=== PATIENT | male | born 1950 | race Caucasian/White ===

== ENCOUNTER 2016-11-04 08:17 | Day surgery (SDC) | payer OTHER ==
[2016-11-04 09:15] LABS: HEMATOCRIT 44.6 % (40.0-51.0)
[2016-11-04] MEDS ORDERED: LIDOCAINE 1% 30 ML SDV ONE (09:29)
[2016-11-04] MEDS ORDERED: IOPAMIDOL (ISOVUE-300) 100 ML BTL IV ONE (09:29)
[2016-11-04] MEDS ORDERED: LIDOCAINE 2% JELLY 20 ML (UROJECT) ONE (09:29)
[2016-11-04] MEDS ORDERED: fentaNYL 100 MCG/2 ML INJ ONE (09:40)
[2016-11-04] MEDS ORDERED: MIDAZOLAM 2 MG/2 ML VIAL ONE (09:41)
[2016-11-04 09:42] LABS: INR 1.08 (0.83-1.16); PROTIME(PATIENT) 13.9 SEC (12.0-15.0)
[2016-11-04] MEDS ORDERED: GLUCAGON,HUMAN RECOMBINANT 1 MG VIAL ONE (10:17)
[2016-11-04 10:29] LABS: APTT 27.7 SEC (23.0-38.0)
[2016-11-04] MEDS ORDERED: HYDROCODONE/APAP 5/325 TAB ONE (13:01)
[2016-11-04] MEDS ORDERED: ACETAMINOPHEN 325 MG TAB PO PRN (14:19)
[2016-11-04] MEDS ORDERED: ONDANSETRON 4 MG/2 ML VIAL IVP PRN (14:20)
[2016-11-04] MEDS ORDERED: HYDROCODONE/APAP 5/325 TAB PO PRN (14:20)
== END 2016-11-04 13:40 | disposition home or self-care (01) ==
LOC: FIMAGING 08:17
PROVIDERS: ATTEND Internal Medicine Hematology & Oncology
PROC: 0DH63UZ Insertion of Feeding Device into Stomach, Percutaneous Approach (ICD-10-PCS; principal; 2016-11-04 10:51)
DX: C02.9 Malignant neoplasm of tongue, unspecified (principal); I10 Essential (primary) hypertension; E78.00 Pure hypercholesterolemia, unspecified; Z87.891 Personal history of nicotine dependence
CPT/HCPCS: 49440; 99152; C1729; C1769; J1610; J1644; J2250; J3010; Q9967

== ENCOUNTER → 2016-11-20 | Day surgery (SDC) | payer OTHER | END | disposition home or self-care (01) | LOC: FIMAGING 11:10 | PROVIDERS: ATTEND Radiology Diagnostic Radiology | PROC: 02HV33Z Insertion of Infusion Device into Superior Vena Cava, Percutaneous Approach (ICD-10-PCS; principal; 2016-11-20) | DX: C01 Malignant neoplasm of base of tongue (principal) | CPT/HCPCS: 36569; 77001; C1751 ==

== ENCOUNTER 2017-01-12 09:29 | Emergency (ER) | payer OTHER ==
--- NOTE | 2017-01-12 10:00 | EDPHY ---
HPI/HX/ROS/PE/MDM Narrative: CHIEF COMPLAINT: Fever HPI: The patient is a 66 y/o male arriving with his at recommendation of his oncologist due to a fever and malaise this morning. The patient states he just completed 7 weeks of radiation and chemotherapy and never feels well. Last night he was coughing and felt like "I pulled something in my ribs" on the right side." He had a difficult time sleeping and felt poor this morning. His states their home thermometer read a temperature of 103F, though he was afebrile in triage. He denies abdominal pain, vomiting, diarrhea. REVIEW OF SYSTEMS: Aside from elements discussed in the HPI, a comprehensive 10-point review of systems was reviewed and is negative. PMH: Throat cancer treated with radiation and chemotherapy that concluded on 12/30, hypertension, tonsillectomy, g-tube Oncologist: Dr. Rizvi SOCIAL HISTORY: at bedside. PHYSICAL EXAM: General:Patient is alert, in no acute distress. ENT:Eyes are normal to inspection. Post-radiation changes in pharynx. Neck: Normal inspection. Full range of motion. Respiratory:No respiratory distress. Breath sounds normal bilaterally. Cardiovascular: Regular rate and rhythm. Strong peripheral pulses. Normal cap refill. Abdomen:The abdomen is nontender to palpation. There are no peritoneal signs. Back: Normal to inspection. No tenderness to palpation. Skin: Normal color. No rash. Warm and dry. Extremities: Normal appearance. Full range of motion. Neuro: Oriented x3. Normal motor function. Normal sensory function. ED Course: This is a 66 y/o male with active throat cancer who just completed 7 weeks of radiation and chemotherapy and presents with a reported 103F at home this morning. He is afebrile here. Other than post-radiation changes to his pharynx, his exam is unremarkable. Plan for chest x-ray, IV, labs including blood cultures. Chest x-ray shows left lower lobe pneumonia. Oncology paged. 1120: Consulted with Dr. Benson, oncology. WBC 4.31. He recommends IV Levaquin here, discharge with oral Levaquin, and outpatient follow up with his office. I discussed this with the patient and he is comfortable with plan for discharged. Return precautions given. MDM: This patient presents with fever, and he is found to have pneumonia on exam. He is not hypoxic and does not show any signs of severe sepsis or septic shock. He has recently completed a course of chemotherapy, but he is not neutropenic. After discussion with Oncology, I think the patient is safe for outpatient management. I discussed strict return precautions with him. He feels comfortable going home. - Data Points Imaging Results: Imaging Impressions Chest X-Ray 01/12/17 10:01 Impression: Left lower lobe pneumonia. Imaging: I viewed and interpreted images myself Laboratory Results: Laboratory Results 01/12/17 10:30 01/12/17 10:30 01/12/17 01/12/17 10:30 10:30 WBC 4.31 10^3/uL 10^3/uL (3.80-9.50) RBC 4.00 10^6/uL L 10^6/uL (4.40-6.38) Hgb 12.4 g/dL L g/dL (13.7-17.5) Hct 35.9 % L % (40.0-51.0) MCV 89.8 fL fL (81.5-99.8) MCH 31.0 pg pg (27.9-34.1) MCHC 34.5 g/dL g/dL (32.4-36.7) RDW 17.1 % H % (11.5-15.2) Plt Count 141 10^3/uL L 10^3/uL (150-400) MPV 8.8 fL fL (8.7-11.7) Neut % (Auto) 80.9 % H % (39.3-74.2) Lymph % (Auto) 4.4 % L % (15.0-45.0) [place] % (Auto) 12.1 % % (4.5-13.0) Eos % (Auto) 0.0 % L % (0.6-7.6) Baso % (Auto) 0.5 % % (0.3-1.7) Nucleat RBC Rel Count 0.0 % % (0.0-0.2) Absolute Neuts (auto) 3.49 10^3/uL 10^3/uL (1.70-6.50) Absolute Lymphs (auto) 0.19 10^3/uL L 10^3/uL (1.00-3.00) Absolute Monos (auto) 0.52 10^3/uL 10^3/uL (0.30-0.80) Absolute Eos (auto) 0.00 10^3/uL L 10^3/uL (0.03-0.40) Absolute Basos (auto) 0.02 10^3/uL 10^3/uL (0.02-0.10) Absolute Nucleated RBC 0.00 10^3/uL 10^3/uL (0-0.01) Immature Gran % 2.1 % H % (0.0-1.1) Immature Gran # 0.09 10^3/uL 10^3/uL (0.00-0.10) Sodium 141 mEq/L mEq/L (134-144) Potassium 4.3 mEq/L mEq/L (3.5-5.2) Chloride 105 mEq/L mEq/L (97-110) Carbon Dioxide 27 mEq/l mEq/l (22-31) Anion Gap 9 mEq/L mEq/L (8-16) BUN 28 mg/dL H mg/dL (7-23) Creatinine 0.8 mg/dL mg/dL (0.7-1.3) Estimated GFR > 60 Glucose 118 mg/dL H mg/dL (70-100) Calcium 8.8 mg/dL mg/dL (8.5-10.4) General Time Seen by Provider: 01/12/17 09:50 Initial Vital Signs: Initial Vital Signs Temperature (C) 36.7 C 01/12/17 09:39 Heart Rate 111 H 01/12/17 09:39 Respiratory Rate 16 01/12/17 09:39 Blood Pressure 168/89 H 01/12/17 09:39 O2 Sat (%) 92 01/12/17 09:39 O2 Delivery Mode Room Air Allergies/Adverse Reactions: Penicillins Allergy (Unverified 10/24/16 16:31) Home Medications: Medication Instructions Recorded Aspirin 81mg (*) 1 tab PO DAILY 11/01/16 Lisinopril-Hctz 10-12.5 mg Tab 1 tab PO DAILY 11/01/16 Multivitamin 1 tab PO DAILY 11/01/16 levOFLOXACIN [levAQUIN] 750 mg PO DAILY #9 tab 01/12/17 Departure - Departure Disposition: Home, Routine, Self-Care Clinical Impression: Pneumonia Qualifiers: Pneumonia type: due to unspecified organism Laterality: left Lung location: lower lobe of lung Qualified Code(s): J18.1 - Lobar pneumonia, unspecified organism Condition: Good Instructions: Pneumonia (ED) Additional Instructions: 1. Take Levaquin as prescribed. Be sure to complete the entire prescription even if you feel better. 2. Use Tylenol and ibuprofen as directed on the packaging as needed for pain or fever. 3. Follow up with Dr. Rizvi's office this week. 4. Return to the ED for any worsening of condition. Referrals: Gonzalez Lawrence MD [Primary Care Provider] - As per Instructions Adrien Rizvi MD [Medical Doctor] - As per Instructions Prescriptions: levOFLOXACIN [levAQUIN] 750 mg PO DAILY #9 tab Report Scribed for: Mark Hernandez Report Scribed by: Fozia Anderson Date of Report: 01/12/17 Time of Report: 10:07 Physician Review and Approval Statement: Portions of this note were transcribed by an ED scribe. I personally performed the history, physical exam, and medical decision making; and confirm the accuracy of the information in the transcribed note.
[2017-01-12 10:44] LABS: % IMMATURE GRANULYOCYTES 2.1 % (0.0-1.1); ABSOLUTE IMMATURE GRANULOCYTES 0.09 10^3/uL (0.00-0.10); ADD DIFF? NO; ADD MORPH? NO; ADD SCAN? NO; ATYPICAL LYMPHOCYTE FLAG 0 (0-99); FRAGMENT RBC FLAG 0 (0-99); HEMATOCRIT 35.9 % (40.0-51.0); HEMOGLOBIN 12.4 g/dL (13.7-17.5); LEFT SHIFT FLG 20 (0-99); LIPEMIA HEMOLYSIS FLAG 90 (0-99); MEAN CELL HEMOGLOBIN CONCENTR. 34.5 g/dL (32.4-36.7); MEAN CELL VOLUME 89.8 fL (81.5-99.8); MEAN PLATELET VOLUME 8.8 fL (8.7-11.7); PLATELET CLUMPS FLAG 0 (0-99); PLATELET COUNT 141 10^3/uL (150-400); RED CELL DISTRIBUTION WIDTH 17.1 % (11.5-15.2)
[2017-01-12 10:56] LABS: ANION GAP 9 mEq/L (8-16); CALCIUM 8.8 mg/dL (8.5-10.4); CARBON DIOXIDE 27 mEq/l (22-31); CHLORIDE 105 mEq/L (97-110); CREATININE 0.8 mg/dL (0.7-1.3); GLOMERULAR FILTRATION RATE > 60; GLUCOSE 118 mg/dL (70-100); POTASSIUM 4.3 mEq/L (3.5-5.2); SODIUM 141 mEq/L (134-144)
[2017-01-12 12:55] VITALS: BP 155/67; PULSE 82; RESP 18; TEMP 98.2; O2SAT 94
== END 2017-01-12 13:00 | disposition home or self-care (01) ==
DX: J18.9 Pneumonia, unspecified organism (principal); I10 Essential (primary) hypertension; Z85.818 Personal history of malignant neoplasm of other sites of lip, oral cavity, and pharynx
CPT/HCPCS: 96365; 96366; J1642; J1956

== ENCOUNTER 2017-01-15 07:15 | Inpatient (IN) | payer OTHER ==
[2017-01-15] MEDS ORDERED: IOPAMIDOL (ISOVUE 370) 100 ML BTL IV ONE (07:45)
[2017-01-15 07:52] LABS: % IMMATURE GRANULYOCYTES 1.9 % (0.0-1.1); ABSOLUTE IMMATURE GRANULOCYTES 0.07 10^3/uL (0.00-0.10); ADD DIFF? NO; ADD MORPH? NO; ADD SCAN? NO; ATYPICAL LYMPHOCYTE FLAG 0 (0-99); FRAGMENT RBC FLAG 0 (0-99); HEMATOCRIT 34.4 % (40.0-51.0); HEMOGLOBIN 11.8 g/dL (13.7-17.5); LEFT SHIFT FLG 20 (0-99); LIPEMIA HEMOLYSIS FLAG 90 (0-99); MEAN CELL HEMOGLOBIN 30.7 pg (27.9-34.1); MEAN CELL HEMOGLOBIN CONCENTR. 34.3 g/dL (32.4-36.7); MEAN CELL VOLUME 89.6 fL (81.5-99.8); MEAN PLATELET VOLUME 9.6 fL (8.7-11.7); PLATELET CLUMPS FLAG 40 (0-99); PLATELET COUNT 119 10^3/uL (150-400); RED BLOOD CELL COUNT 3.84 10^6/uL (4.40-6.38); RED CELL DISTRIBUTION WIDTH 17.5 % (11.5-15.2)
--- NOTE | 2017-01-15 07:53 | EDPHY ---
H & P Time Seen by Provider: 01/15/17 07:33 HPI/ROS: CHIEF COMPLAINT: Hemoptysis HISTORY OF PRESENT ILLNESS: The patient is a 66-year-old male with history of throat cancer, s/p chemotherapy and radiation, who presents with hemoptysis. This morning the patient coughed up about 2 tablespoons of blood. The patient was here Friday, 3 days ago, with fever and right sided chest pain. He was diagnosed with pneumonia and started on Levaquin. He was sent here by his oncologist, Dr. Riziv, to have CTA chest to r/o PE. He continues to have moderate rt sided cp that increases with inspiration. No SOB and no URI sx. REVIEW OF SYSTEMS: A comprehensive 10 point review of systems is otherwise negative aside from elements mentioned in the history of present illness. Past Medical/Surgical History: Throat cancer- s/p chemo/XRT, has feeding tube Hypertension Social History: . Oncologist: Dr. Rizvi Smoking Status: Former smoker Physical Exam: General Appearance: Alert, pleasant Eyes: Pupils equal and round, no conjunctival pallor or injection ENT, Mouth: Mucous membranes moist Neck: Normal inspection Respiratory: Lungs are clear to auscultation Cardiovascular: Regular rate and rhythm Gastrointestinal: Abdomen is soft and non-tender Neurological: A&O, nonfocal, normal gait Skin: Warm and dry, no rash Extremities: Nontender, no pedal edema Psychiatric: Mood and affect normal Constitutional: Initial Vital Signs Temperature (C) 36.7 C 01/15/17 07:23 Heart Rate 96 01/15/17 07:23 Respiratory Rate 20 01/15/17 07:23 Blood Pressure 152/77 H 01/15/17 07:23 O2 Sat (%) 93 01/15/17 07:23 O2 Delivery Mode Room Air O2 (L/minute) 2 Allergies/Adverse Reactions: Penicillins Allergy (Verified 01/15/17 07:22) Home Medications: Medication Instructions Recorded Aspirin 81mg (*) 1 tab PO DAILY 11/01/16 Lisinopril-Hctz 10-12.5 mg Tab 1 tab PO DAILY 11/01/16 Multivitamin 1 tab PO DAILY 11/01/16 levOFLOXACIN [levAQUIN] 750 mg PO DAILY #9 tab 01/12/17 Medical Decision Making - Diagnostics Imaging Results: Imaging Impressions Chest/Thorax CTA 01/15/17 07:33 Impression: 1. Positive pulmonary emboli, small volume, in the right lower lobe and left upper lobe. 2. Patchy opacities in the posterior basal segment of the right lower lobe and lingula, which may represent atelectasis, pneumonitis, or small pulmonary infarct. 3. Minimal right pleural effusion. 4. No suspicious pulmonary nodules or significant adenopathy. Findings and recommendations discussed with Emergency Department physician, Holli Maddox at 0815 hours on January 15, 2017. Final report concurs with initial preliminary interpretation. A test result has been communicated to a licensed care provider and documented in the [facility] Critical Result system on 01/15/2017 8:22, Message ID [id number]. Imaging: Discussed imaging studies w/ call or contact centre team leader Radiologist ED Course/Re-evaluation: The patient is a 66-year-old male, with history of throat cancer, s/p chemotherapy and radiation, presenting with hemoptysis. The patient was sent here by his oncologist to have CTA chest. The patient was seen here 3 days ago for right sided chest pain and fever. He was diagnosed with pneumonia and started on IV Levaquin. CTA today shows right lower and upper lobe pulmonary emboli, no definite pneumonia. Plan to start patient on anticoagulant. Patient' s platelet count today is 119. Vitals are stable. 8:30 a.m.: I consulted Dr. Rizvi who recommends IV Heparin. He will consult on the patient. 8:33 a.m.: I consulted the hospitalist, the patient will be admitted to Dr. Levine. Differential Diagnosis: Differential diagnosis includes though it is not limited to pneumonia, pneumothorax, aortic dissection, pericarditis, acute coronary syndrome. - Data Points Laboratory Results: Laboratory Results 01/15/17 07:35 01/15/17 07:35 01/15/17 01/15/17 01/15/17 07:35 07:35 07:35 WBC 3.64 10^3/uL L 10^3/uL (3.80-9.50) RBC 3.84 10^6/uL L 10^6/uL (4.40-6.38) Hgb 11.8 g/dL L g/dL (13.7-17.5) POC Hgb Hct 34.4 % L % (40.0-51.0) POC Hct MCV 89.6 fL fL (81.5-99.8) MCH 30.7 pg pg (27.9-34.1) MCHC 34.3 g/dL g/dL (32.4-36.7) RDW 17.5 % H % (11.5-15.2) Plt Count 119 10^3/uL L 10^3/uL (150-400) MPV 9.6 fL fL (8.7-11.7) Neut % (Auto) 75.0 % H % (39.3-74.2) Lymph % (Auto) 4.7 % L % (15.0-45.0) [place] % (Auto) 18.1 % H % (4.5-13.0) Eos % (Auto) 0.0 % L % (0.6-7.6) Baso % (Auto) 0.3 % % (0.3-1.7) Nucleat RBC Rel Count 0.0 % % (0.0-0.2) Absolute Neuts (auto) 2.73 10^3/uL 10^3/uL (1.70-6.50) Absolute Lymphs (auto) 0.17 10^3/uL L 10^3/uL (1.00-3.00) Absolute Monos (auto) 0.66 10^3/uL 10^3/uL (0.30-0.80) Absolute Eos (auto) 0.00 10^3/uL L 10^3/uL (0.03-0.40) Absolute Basos (auto) 0.01 10^3/uL L 10^3/uL (0.02-0.10) Absolute Nucleated RBC 0.00 10^3/uL 10^3/uL (0-0.01) Immature Gran % 1.9 % H % (0.0-1.1) Immature Gran # 0.07 10^3/uL 10^3/uL (0.00-0.10) PT 15.3 SEC H SEC (12.0-15.0) INR 1.21 H (0.83-1.16) APTT 28.6 SEC SEC (23.0-38.0) POC Sodium Sodium 140 mEq/L mEq/L (134-144) POC Potassium Potassium 4.2 mEq/L mEq/L (3.5-5.2) POC Chloride Chloride 103 mEq/L mEq/L (97-110) Carbon Dioxide 29 mEq/l mEq/l (22-31) Anion Gap 8 mEq/L mEq/L (8-16) POC BUN BUN 34 mg/dL H mg/dL (7-23) Creatinine 0.7 mg/dL mg/dL (0.7-1.3) POC Creatinine Estimated GFR > 60 Glucose 96 mg/dL mg/dL (70-100) POC Glucose Calcium 8.8 mg/dL mg/dL (8.5-10.4) 01/15/17 07:33 WBC RBC Hgb POC Hgb 11.6 gm/dL L gm/dL (14.5-17.3) Hct POC Hct 34 % L % (42.8-50.6) MCV MCH MCHC RDW Plt Count MPV Neut % (Auto) Lymph % (Auto) [place] % (Auto) Eos % (Auto) Baso % (Auto) Nucleat RBC Rel Count Absolute Neuts (auto) Absolute Lymphs (auto) Absolute Monos (auto) Absolute Eos (auto) Absolute Basos (auto) Absolute Nucleated RBC Immature Gran % Immature Gran # PT INR APTT POC Sodium 140 mEq/L mEq/L (134-144) Sodium POC Potassium 3.9 mEq/L mEq/L (3.3-5.0) Potassium POC Chloride 100 mEq/L mEq/L (96-108) Chloride Carbon Dioxide Anion Gap POC BUN 31 mg/dL H mg/dL (7-23) BUN Creatinine POC Creatinine 0.8 mg/dL mg/dL (0.8-1.5) Estimated GFR Glucose POC Glucose 99 mg/dL mg/dL (70-100) Calcium Medications Given: Discontinued Medications Heparin Sodium (Porcine) (Heparin Injection) 0 unit IVP EDNOW ONE PRN Reason: Protocol Stop: 01/15/17 08:30 Last Admin: 01/15/17 08:48 Dose: 5,800 units Heparin Sodium (Porcine) (Heparin 50 Units/Ml (Premix)) 500 mls @ 0 mls/hr IV EDNOW ONE; Per Protocol PRN Reason: Protocol Stop: 01/15/17 08:30 Last Admin: 01/15/17 08:49 Dose: 500 mls Point of Care Test Results: 01/15/17 07:33 POC Sodium 140 POC Potassium 3.9 POC Chloride 100 POC BUN 31 H POC Creatinine 0.8 POC Glucose 99 Departure - Departure Disposition: [facility] Inpatient Acute Clinical Impression: History of throat cancer, Cough with hemoptysis Pulmonary emboli Qualifiers: Pulmonary embolism type: other Chronicity: acute Acute cor pulmonale presence: without acute cor pulmonale Qualified Code(s): I26.99 - Other pulmonary embolism without acute cor pulmonale Condition: Fair Report Scribed for: Holli Maddox Report Scribed by: Joelle Davidson Date of Report: 01/15/17 Time of Report: 08:21 Physician Review and Approval Statement: 01/15/17 08:21 Portions of this note were transcribed by a lpn medical assistant. I personally performed the history, physical exam, and medical decision-making; and confirmed the accuracy of the information in the transcribed note.
[2017-01-15 07:59] LABS: INR 1.21 (0.83-1.16); PROTIME(PATIENT) 15.3 SEC (12.0-15.0)
[2017-01-15 08:00] LABS: APTT 28.6 SEC (23.0-38.0)
[2017-01-15 08:08] LABS: ANION GAP 8 mEq/L (8-16); CALCIUM 8.8 mg/dL (8.5-10.4); CARBON DIOXIDE 29 mEq/l (22-31); CHLORIDE 103 mEq/L (97-110); CREATININE 0.7 mg/dL (0.7-1.3); GLOMERULAR FILTRATION RATE > 60; GLUCOSE 96 mg/dL (70-100); POTASSIUM 4.2 mEq/L (3.5-5.2); SODIUM 140 mEq/L (134-144)
[2017-01-15] MEDS ORDERED: HEPARIN/DEXTROSE 500 ML IV ONE (08:29)
[2017-01-15] MEDS ORDERED: HEPARIN 10,000 UNIT/10 ML MDV IVP ONE ×2 (08:29→11:13)
--- NOTE | 2017-01-15 11:08 | GCON ---
[f rep st] CONSULTATION MEDICAL ONCOLOGY CONSULTATION. 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 He had bilateral adenopathy, and initial staging was T3 N2 C4A, althoug h this also was a stage II cancer in the staging for HPV-positive cancers. He was treated with comp rehensive radiation and weekly cisplatin. He also received amifostine, and he completed his last cy ariana of treatment in early December. He has since been followed. He has continued to lose weight. He is feeding himself via his PEG tube. He was seen in the emergency room 4 days ago with a fever and so me chest discomfort. A chest x-ray showed a left lower lobe infiltrate, and he was felt to have a p resumed pneumonia, and was placed on Levaquin. This morning, however, he developed some hemoptysis, and was instructed to go to the emergency room. A CT angiogram was performed, which showed small v olume pulmonary emboli in the right lower lobe and left upper lobe. There were patchy opacities in the right lower lobe and lingula, and a minimal right effusion. I should note that his chest pain i s primarily right-sided. He denies any problems with his legs. He was started on a heparin drip an d admitted to the cancer care unit. Currently, he appears moderately ill, but is awake and oriented . PAST MEDICAL HISTORY: Hypertension. SURGERY: Repair of a ruptured Achilles tendon, 2005. SOCIAL HISTORY: He has a [id number] former smoking history. REVIEW OF SYSTEMS: Positive for dry mouth. He denies much in the way of pain, and is otherwise neg ative for 10 systems except as discussed in the HPI. PHYSICAL EXAMINATION: VITAL SIGNS: Today, blood pressure 141/82, pulse 100, 95% sat on 2 L, temp 9 8.7. HEENT: He is not icteric. He has significant mucositis and a very dry-appearing mouth, with poor oral hygiene. NECK: I detect no obvious adenopathy. There are some mild post radiation skin changes around his neck. LUNGS: Generally clear. CARDIAC: Unremarkable. ABDOMEN: Benign with a PEG tube noted. EXTREMITIES: No obvious edema. NEUROLOGIC: Nonfocal. White count is 3.64, hemo globin 11.8, hematocrit 34.4, platelets are 119,000. Chemistry panel is unremarkable. IMPRESSION: Patient with hemoptysis and a pulmonary embolism related to recent treatment for human papillomavirus-positive head and neck carcinoma. It is unclear whether there is an infectious compo nent to this or not. PLAN: Treat him with intravenous heparin for a day or so, and make sure we do not flare up his hemo ptysis. He could probably be discharged on a novel anticoagulant. We will continue with mouth care and appropriate tube feedings. /[id number]/MODL
[2017-01-15] MEDS ORDERED: ONDANSETRON DISINTEGRATING 4 MG TAB PO PRN (11:35)
[2017-01-15] MEDS ORDERED: ACETAMINOPHEN 500 MG TAB PO PRN (11:44)
[2017-01-15] MEDS ORDERED: LORazepam 0.5 MG TAB PO PRN (11:44)
--- NOTE | 2017-01-15 12:29 | GHP ---
[f rep st] HISTORY AND PHYSICAL DATE OF ADMISSION: 01/15/2017 HISTORY OF PRESENT ILLNESS: The patient is a pleasant 66-year-old gentleman with a history of laryn geal cancer who has currently completed chemotherapy. He presents today with hemoptysis and his onc ologist recommended he present to the emergency department for a CTA which showed pulmonary emboli. He was seen in our ER over the weekend and diagnosed with pneumonia based on a left lower lobe infil trate (images interpreted by me). That did occur with a fever and sputum. He has no pain in his legs. He has no pleuritic pain. He has no lightheadedness or dizziness, coug h, shortness of breath. He has not had prior VTE. REVIEW OF SYSTEMS: Complete 10-point review of systems conducted, negative except as noted in the H PI. PAST MEDICAL HISTORY: 1. HPV-related laryngeal cancer, status post chemotherapy. 2. Hypertension. ALLERGIES: Penicillins with which he gets a rash. HOME MEDICATIONS: Lisinopril/hydrochlorothiazide, levofloxacin, Ativan, acetaminophen, oxycodone. SOCIAL HISTORY: He is originally from [facility]. 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 Quit smoking re motely. Rare alcohol. FAMILY HISTORY: Negative for VTE. PHYSICAL EXAM: VITAL SIGNS: Temp 36.7, blood pressure 152/77, pulse 96, breathing 20 times a minut e, 93% on room air. GENERAL: No acute distress. HEENT: Sclerae anicteric. Oropharynx shows a fa ir amount of tissue maceration secondary to chemotherapy and radiation. NECK: Supple without lymph adenopathy. LUNGS: Clear to auscultation bilaterally. HEART: S1, S2. Borderline tachycardic. A BDOMEN: Soft, without rebound or guarding. His PEG tube is midline without surrounding erythema or fluctuance. LOWER EXTREMITIES: Without edema. Calves nontender. SKIN: Without rash. NEUROLOGI C: Nonfocal. LABORATORY DATA: White count 3.6, hematocrit 34.4, and platelets are 119,000. These values are all sort of commensurate with his recent values. INR is 1.2. Sodium 140, potassium 4.2, chloride 103, bicarb 29, BUN 34, creatinine 0.7, glucose 96. CTA of the chest shows multifocal PE, patchy opacit ies in the posterior segment of the right lower lobe and lingula, may represent atelectasis, pneumon itis, small pulmonary infarct. The chest x-ray performed a couple of days ago showed a left lower l obe infiltrate. I have discussed the case with Dr. Mckayla Rizvi. ASSESSMENT/PLAN: 66-year-old gentleman with laryngeal cancer and recently diagnosed community-acqui red pneumonia. Presents with acute pulmonary embolism. 1. Pulmonary embolism. His risk factor is cancer. We will start him on a heparin drip given his h emoptysis. The plan is ultimately transition to a novel anticoagulant. He is moderate to low clot burden. 2. Pneumonia. Given his fever and his recent chemotherapy, I think it is reasonable for him to con tinue a 7-day course of antibiotics. 3. Hypertension. Given his pulmonary embolism, we will hold his antihypertensives today. He has b orderline hypoxia. 4. Prophylaxis. Pharmacologic prophylaxis is indicated but he is therapeutically anticoagulated. 5. Head and neck cancer. He is done with chemotherapy. He will be re-staged in about 3 months. 6. Code status. Full. 7. Disposition. Inpatient status. /[id number]/MODL
[2017-01-15] MEDS: oxyCODONE IR 5 MG TAB PO PRN (21:46)
[2017-01-15] MEDS: HEPARIN/DEXTROSE 500 ML IV SCH (21:46)
[2017-01-15] MEDS: HEPARIN 10,000 UNIT/10 ML MDV IVP PRN (22:51)
[2017-01-16 06:12] LABS: ADD DIFF? YES; ADD MORPH? NO; ADD SCAN? NO; ATYPICAL LYMPHOCYTE FLAG 0 (0-99); FRAGMENT RBC FLAG 0 (0-99); HEMATOCRIT 30.2 % (40.0-51.0); HEMOGLOBIN 10.4 g/dL (13.7-17.5); LEFT SHIFT FLG 80 (0-99); LIPEMIA HEMOLYSIS FLAG 90 (0-99); MEAN CELL HEMOGLOBIN 30.5 pg (27.9-34.1); MEAN CELL HEMOGLOBIN CONCENTR. 34.4 g/dL (32.4-36.7); MEAN CELL VOLUME 88.6 fL (81.5-99.8); MEAN PLATELET VOLUME 9.7 fL (8.7-11.7); PLATELET CLUMPS FLAG 0 (0-99); PLATELET COUNT 96 10^3/uL (150-400); RED BLOOD CELL COUNT 3.41 10^6/uL (4.40-6.38); RED CELL DISTRIBUTION WIDTH 17.2 % (11.5-15.2)
[2017-01-16 06:30] LABS: ANION GAP 6 mEq/L (8-16); CALCIUM 8.3 mg/dL (8.5-10.4); CARBON DIOXIDE 29 mEq/l (22-31); CHLORIDE 99 mEq/L (97-110); CREATININE 0.6 mg/dL (0.7-1.3); GLOMERULAR FILTRATION RATE > 60; GLUCOSE 102 mg/dL (70-100); POTASSIUM 3.6 mEq/L (3.5-5.2); SODIUM 134 mEq/L (134-144)
[2017-01-16 06:56] LABS: PLATELET ESTIMATE DECREASED (ADEQ)
[2017-01-16] MEDS ORDERED: Herbals/Supplements -Info Only PO SCH (09:00)
[2017-01-16] MEDS: ONDANSETRON 4 MG/2 ML VIAL IVP PRN (09:34)
--- NOTE | 2017-01-16 10:05 | HOSPPROG ---
Hospitalist Progress Note Assessment/Plan: 66 yo M w laryngeal CA here w small volume PE, fever, likely CAP PE: given hemoptysis, continue UFH ultimate plan is to transition to novel anticoagulant pneumonia: given fever, reasonable to continue to treat he suspects levoflox is causing nausea so will change to ceftriaxone pcn allergy noted, rash only laryngeal CA: has completed chemo nausea: continue prn meds, see what happens when levoflox dc'd hemoptysis: hct low but stable prph: anticoagulated dispo: inpt Subjective: febrile overnight. vomiting w some dark blood this AM Objective: Vital Signs Temp Pulse Resp BP Pulse Ox 36.6 C 68 18 149/83 H 94 01/16/17 08:30 01/16/17 08:30 01/16/17 08:30 01/16/17 08:30 01/16/17 08:30 Laboratory Results 01/16/17 05:23 01/16/17 05:23 01/15/17 01/16/17 01/17/17 05:59 05:59 05:59 Intake Total 1213 300 Balance 1213 300 PT 15.3 SEC (12.0-15.0) H 01/15/17 07:35 INR 1.21 (0.83-1.16) H 01/15/17 07:35 - Physical Exam Constitutional: no apparent distress, appears nourished Eyes: PERRL, anicteric sclera Ears, Nose, Mouth, Throat: other (mucusitis) Cardiovascular: regular rate and rhythym, no murmur, rub, or gallop, No tachycardia Respiratory: no respiratory distress, no rales or rhonchi Gastrointestinal: normoactive bowel sounds, soft, non-tender abdomen, other ( PEG site c/d/i), No guarding, No rebound Genitourinary: no bladder fullness Skin: warm, normal color Musculoskeletal: full muscle strength, no muscle tenderness Neurologic: AAOx3 ICD10 Worksheet Patient Problems: Problems Problem Status Onset Cough with hemoptysis Acute History of throat cancer Acute Pulmonary emboli Acute
[2017-01-16] MEDS: POLYETHYLENE GLYCOL 3350 17 GM PKT PO SCH (10:18)
[2017-01-16] MEDS ORDERED: PROMETHAZINE HCL 25 MG/ML INJ IVP PRN (11:16)
--- NOTE | 2017-01-16 12:18 | SOAPPROG ---
SOAP Progress Note Assessment/Plan: Assessment: 1. Head and neck cancer 2. PE 3. Mucositis 4. fever 5. hemoptysis Plan: Continue iv heparin for now, antibiotic switched to ceftriaxone, try salagen and nystatin for dry mouth and possible thrush 01/16/17 12:15 Subjective: Feels gen blah Objective: Vital Signs Temp Pulse Resp BP Pulse Ox 97.8 F 68 18 149/83 H 94 01/16/17 08:30 01/16/17 08:30 01/16/17 08:30 01/16/17 08:30 01/16/17 08:30 Laboratory Results 01/16/17 05:23 01/16/17 05:23 01/15/17 01/16/17 01/17/17 05:59 05:59 05:59 Intake Total 1213 300 Balance 1213 300 PT 15.3 SEC (12.0-15.0) H 01/15/17 07:35 INR 1.21 (0.83-1.16) H 01/15/17 07:35 Physical Exam - Physical Exam General Appearance: mild distress Respiratory: normal breath sounds Cardiac/Chest: regular rate, rhythm Abdomen: normal bowel sounds, non-tender ICD10 Worksheet Patient Problems: Problems Problem Status Onset Cough with hemoptysis Acute History of throat cancer Acute Pulmonary emboli Acute
[2017-01-16] MEDS: HEPARIN/DEXTROSE 500 ML IV SCH (13:01)
[2017-01-16] MEDS ORDERED: HYDROmorphONE/DILAUDID 1 MG/ML SYR IVP PRN (16:07)
[2017-01-16] MEDS: NYSTATIN SUSP 500000 UNIT/5 ML UDCUP PO SCH ×2 (16:44→22:29)
[2017-01-16] MEDS: PILOCARPINE HCL 5 MG TAB PO SCH ×2 (16:44→22:20)
[2017-01-16] MEDS: ACETAMINOPHEN 325 MG TAB PO PRN (21:40)
[2017-01-16] MEDS: oxyCODONE IR 5 MG TAB PO PRN (21:50)
[2017-01-17] MEDS: HEPARIN 10,000 UNIT/10 ML MDV IVP PRN (00:10)
[2017-01-17] MEDS: NS W/ 20 KCl/L 1,000 ML IV SCH ×2 (04:23→15:52)
[2017-01-17] MEDS: HEPARIN/DEXTROSE 500 ML IV SCH ×2 (04:32→20:11)
[2017-01-17] MEDS: NYSTATIN SUSP 500000 UNIT/5 ML UDCUP PO SCH ×4 (06:07→21:30)
[2017-01-17] MEDS: ACETAMINOPHEN 325 MG TAB PO PRN ×2 (06:07→17:13)
[2017-01-17 06:21] LABS: ADD DIFF? YES; ADD MORPH? NO; ADD SCAN? NO; ATYPICAL LYMPHOCYTE FLAG 0 (0-99); FRAGMENT RBC FLAG 0 (0-99); HEMATOCRIT 30.3 % (40.0-51.0); HEMOGLOBIN 10.8 g/dL (13.7-17.5); LEFT SHIFT FLG 50 (0-99); LIPEMIA HEMOLYSIS FLAG 90 (0-99); MEAN CELL HEMOGLOBIN 30.8 pg (27.9-34.1); MEAN CELL HEMOGLOBIN CONCENTR. 35.6 g/dL (32.4-36.7); MEAN CELL VOLUME 86.3 fL (81.5-99.8); MEAN PLATELET VOLUME 9.8 fL (8.7-11.7); PLATELET CLUMPS FLAG 10 (0-99); PLATELET COUNT 93 10^3/uL (150-400); RED BLOOD CELL COUNT 3.51 10^6/uL (4.40-6.38); RED CELL DISTRIBUTION WIDTH 16.8 % (11.5-15.2)
[2017-01-17 07:15] LABS: LARGE PLATELETS PRESENT; PLATELET ESTIMATE DECREASED (ADEQ); POLYCHROMASIA 1+; TOXIC VACUOLIZATION PRESENT
[2017-01-17] MEDS: ONDANSETRON 4 MG/2 ML VIAL IVP PRN (08:58)
[2017-01-17] MEDS: POLYETHYLENE GLYCOL 3350 17 GM PKT PO SCH (08:58)
[2017-01-17] MEDS: PILOCARPINE HCL 5 MG TAB PO SCH ×3 (08:59→21:22)
--- NOTE | 2017-01-17 10:37 | HOSPPROG ---
Hospitalist Progress Note Assessment/Plan: 66 yo M w laryngeal CA here w small volume PE, fever, likely CAP PE: given hemoptysis, continue UFH for one more day transition to Eliquis at discharge pneumonia: given fever again last night, reasonable to continue IV Ceftriaxone until 24 hrs afebrile changed from levaquin due to nausea, pt feels nausea is improved add azithro laryngeal CA: has completed chemo nausea: improving PEG tube: cont tube feeds hemoptysis: hct low but stable prph: anticoagulated dispo: inpt Subjective: Pt feels better, looking forward to going home. Had a fever last night. Denies any further hemoptysis. Objective: Vital Signs Temp Pulse Resp BP Pulse Ox 36.8 C 91 16 131/72 H 93 01/17/17 07:23 01/17/17 07:23 01/17/17 07:23 01/17/17 07:23 01/17/17 07:23 Laboratory Results 01/17/17 06:17 01/16/17 05:23 01/16/17 01/17/17 01/18/17 05:59 05:59 05:59 Intake Total 1213 3140 250 Output Total 1325 Balance 1213 1815 250 PT 15.3 SEC (12.0-15.0) H 01/15/17 07:35 INR 1.21 (0.83-1.16) H 01/15/17 07:35 - Physical Exam Constitutional: no apparent distress Eyes: PERRL Ears, Nose, Mouth, Throat: moist mucous membranes Cardiovascular: regular rate and rhythym, no murmur, rub, or gallop Respiratory: no respiratory distress, clear to auscultation Gastrointestinal: normoactive bowel sounds, soft, non-tender abdomen Skin: warm Musculoskeletal: full muscle strength Neurologic: AAOx3 Psychiatric: interacting appropriately ICD10 Worksheet Patient Problems: Problems Problem Status Onset Cough with hemoptysis Acute History of throat cancer Acute Pulmonary emboli Acute
--- NOTE | 2017-01-17 11:30 | SOAPPROG ---
SOAP Progress Note Assessment/Plan: Assessment: 1. Head and neck cancer. He looks better today 2. PE 3. Mucositis 4. fever 5. hemoptysis Plan: observe on ceftriaxone for today, if afebrile home tomorrow on Eliquis, continue Salagen, nystatin 01/16/17 12:15 01/17/17 11:27 Subjective: Feels and looks better today Objective: Vital Signs Temp Pulse Resp BP Pulse Ox 98.2 F 91 16 131/72 H 93 01/17/17 07:23 01/17/17 07:23 01/17/17 07:23 01/17/17 07:23 01/17/17 07:23 Laboratory Results 01/17/17 06:17 01/16/17 05:23 01/16/17 01/17/17 01/18/17 05:59 05:59 05:59 Intake Total 1213 3140 250 Output Total 1325 Balance 1213 1815 250 PT 15.3 SEC (12.0-15.0) H 01/15/17 07:35 INR 1.21 (0.83-1.16) H 01/15/17 07:35 Physical Exam - Physical Exam General Appearance: alert, no apparent distress EENT: other (tongue a bit better) Respiratory: normal breath sounds Cardiac/Chest: regular rate, rhythm Abdomen: normal bowel sounds, non-tender ICD10 Worksheet Patient Problems: Problems Problem Status Onset Cough with hemoptysis Acute History of throat cancer Acute Pulmonary emboli Acute
[2017-01-17] MEDS: AZITHROMYCIN IV 500 MG in D5W 250 ML IV SCH (18:24)
[2017-01-18] MEDS: ACETAMINOPHEN 325 MG TAB PO PRN ×2 (02:40→15:49)
[2017-01-18] MEDS: NYSTATIN SUSP 500000 UNIT/5 ML UDCUP PO SCH ×4 (04:59→21:09)
[2017-01-18 05:14] LABS: ADD DIFF? YES; ADD MORPH? NO; ATYPICAL LYMPHOCYTE FLAG 0 (0-99); FRAGMENT RBC FLAG 0 (0-99); HEMATOCRIT 28.6 % (40.0-51.0); HEMOGLOBIN 10.3 g/dL (13.7-17.5); LIPEMIA HEMOLYSIS FLAG 90 (0-99); MEAN CELL HEMOGLOBIN 31.3 pg (27.9-34.1); MEAN CELL VOLUME 86.9 fL (81.5-99.8); MEAN PLATELET VOLUME 10.1 fL (8.7-11.7); PLATELET CLUMPS FLAG 20 (0-99); PLATELET COUNT 102 10^3/uL (150-400); RED BLOOD CELL COUNT 3.29 10^6/uL (4.40-6.38); RED CELL DISTRIBUTION WIDTH 17.1 % (11.5-15.2)
[2017-01-18 05:15] LABS: ADD SCAN? NO; LEFT SHIFT FLG 100 (0-99)
[2017-01-18 06:44] LABS: PLATELET ESTIMATE DECREASED (ADEQ); POLYCHROMASIA 1+
[2017-01-18] MEDS: PILOCARPINE HCL 5 MG TAB PO SCH ×3 (09:55→21:09)
[2017-01-18] MEDS: POLYETHYLENE GLYCOL 3350 17 GM PKT PO SCH (10:06)
[2017-01-18] MEDS: NS W/ 20 KCl/L 1,000 ML IV SCH ×2 (10:23→23:57)
[2017-01-18] MEDS: AZITHROMYCIN IV 500 MG in D5W 250 ML IV SCH (10:27)
--- NOTE | 2017-01-18 10:27 | HOSPPROG ---
Hospitalist Progress Note Assessment/Plan: 66 yo M w laryngeal CA here w small volume PE, fever, likely CAP PE: no more hemoptysis. Will change to Eliquis, d/c heparin. pneumonia: Was initially on Levaquin, changed to Ceftriaxone plus Azithro due to nausea from Levaquin. Bands 30 --> 22. Still having fevers, but appears non -toxic. ?Aspiration. repeat CXR VFSS to evaluate for aspiration fever: PE could cause fever, but as above, considering aspiration PNA and may need atbx changed. Will d/w ID. laryngeal CA: has completed chemo nausea: improving PEG tube: cont tube feeds hemoptysis: hct low but stable prph: anticoagulated dispo: inpt Subjective: PT feels bored. Fevers persist, T max 38.8 this am. No more hemoptysis x3 days. Denies CP or SOB at rest. Questions if he might be aspirating. Still having some mucus production. Objective: Vital Signs Temp Pulse Resp BP Pulse Ox 37 C 74 20 133/81 H 95 01/18/17 08:30 01/18/17 08:30 01/18/17 08:30 01/18/17 08:30 01/18/17 08:30 Laboratory Results 01/18/17 05:05 01/16/17 05:23 01/17/17 01/18/17 01/19/17 05:59 05:59 05:59 Intake Total 3140 2722 Output Total 1325 2425 275 Balance 1815 297 -275 PT 15.3 SEC (12.0-15.0) H 01/15/17 07:35 INR 1.21 (0.83-1.16) H 01/15/17 07:35 - Physical Exam Constitutional: no apparent distress Eyes: PERRL Ears, Nose, Mouth, Throat: moist mucous membranes Cardiovascular: regular rate and rhythym Respiratory: no respiratory distress, other (RLL crackles) Gastrointestinal: normoactive bowel sounds, soft, non-tender abdomen Skin: warm Musculoskeletal: full muscle strength Neurologic: AAOx3 Psychiatric: interacting appropriately ICD10 Worksheet Patient Problems: Problems Problem Status Onset Cough with hemoptysis Acute History of throat cancer Acute Pulmonary emboli Acute
[2017-01-18] MEDS ORDERED: APIXABAN 5 MG TAB PO SCH (10:30)
[2017-01-18] MEDS: APIXABAN 5 MG TAB PO SCH ×2 (11:23→21:09)
[2017-01-18] MEDS: ONDANSETRON 4 MG/2 ML VIAL IVP PRN (15:26)
--- NOTE | 2017-01-18 16:24 | SOAPPROG ---
SOAP Progress Note Assessment/Plan: A/P: * Fever: continued despite Azithro/ceftriaxone. ?pulmonary source. No obvious aspiration. No urinary sxs, no UCx or UA prior to abx. - tap effusion, ID consult * Right pleural effusion: due to recent PE vs. infection. * PE: initial IV heparin -> Eliquis. Will need to hold Eliquis for thoracentesis. Given recent PE, would restart IV heparin periprocedure. * H&N cancer: completed chemoRT. 01/18/17 16:24 Subjective: No AP, urinary sxs. Diarrhea this morning. O: Tm 38.8 overnight, VS reviewed. Gen: fatigued, NAD. Lungs: CTA (anterolateral exam). CV: no edema. Abd: nontender. Laboratory Tests 01/16/17 01/18/17 05:23 05:05 WBC 2.35 L Hgb 10.3 L Plt Count 102 L Seg Neutrophils % 66 Band Neutrophils % 22 Absolute Seg Neuts 1.55 L Absolute Band Neuts 0.52 Sodium 134 Potassium 3.6 Chloride 99 Carbon Dioxide 29 BUN 22 Creatinine 0.6 L CXR: right subpulmonic effusion. Video esophagram: no aspiration. Objective: Vital Signs Temp Pulse Resp BP Pulse Ox 38.3 C H 103 H 19 122/73 H 90 L 01/18/17 15:34 01/18/17 15:34 01/18/17 15:34 01/18/17 15:34 01/18/17 15:34 Laboratory Results 01/18/17 05:05 01/16/17 05:23 01/17/17 01/18/17 01/19/17 05:59 05:59 05:59 Intake Total 3140 2722 Output Total 1325 2425 475 Balance 1815 297 -475 PT 15.3 SEC (12.0-15.0) H 01/15/17 07:35 INR 1.21 (0.83-1.16) H 01/15/17 07:35 ICD10 Worksheet Patient Problems: Problems Problem Status Onset Cough with hemoptysis Acute History of throat cancer Acute Pulmonary emboli Acute
[2017-01-18 16:32] LABS: INR 1.59 (0.83-1.16)
[2017-01-18 16:33] LABS: APTT 38.6 SEC (23.0-38.0)
--- NOTE | 2017-01-18 18:44 | GCON ---
[f rep st] CONSULTATION DATE OF CONSULTATION: 01/18/2017 REFERRING PHYSICIAN: Linn Vizcarra MD REASON FOR CONSULT: To assist in the management of this 66-year-old male with a history of head and neck cancer admitted with pulmonary emboli, now with persistent fevers. HISTORY OF PRESENT ILLNESS: The patient is a 66-year-old male, whose previous medical history is notable for the followin. History of HPV-associated oropharyngeal cancer. The patient originally presented with left-sided otalgia and was found to have an inflamed mass at the base of his tongue. He was treated with radiation therapy that ended on December 30 , and weekly cisplatin as well as amifostine, which he completed on December 23. He has necessitated the placement of a PEG tube for nutrition, which was performed in October. 2. Hypertension. 3. History of thrush. 4. History of hepatitis A. PREVIOUS SURGICAL HISTORY: History of ruptured Achilles tendon, repaired in 2005. Regarding his present issues, the patient states that since finishing chemotherapy and radiation, he has been exceedingly tired and phlegmatic at home. He has basically been staying at home, watching television and essentially "doing nothing." On January 11, the patient states that his noted that he felt warm. The morning of the , or last Friday, she took his temperature in the armpit and it was 103. At the time, the patient noted some soreness in his right ribs anteriorly. Also of note, he had had some fleeting pain in his left chest, perhaps 2 or 3 days prior. He was not coughing, and had no shaking chills. On January 12, because of this fever, he presented to [facility] Room, where a chest x-ray showed a left- sided pneumonia. He was given intravenous levofloxacin and discharged with a prescription for oral Levaquin, #9 tablets. The patient states he took the levofloxacin on the , , and , and then with persistent fevers and pain with inspiration, particularly at the right base. This past Friday, the patient states he started spitting up blood, so came back to [facility] Emergency Department on the , where a CT angiogram showed pulmonary emboli in the right lower lobe and left upper lobe. I reviewed the CT angiogram and chest x-rays with Dr. Santos today. He does not feel that the patient has an obvious pneumonia, but did state that the area on chest x- ray that was diagnosed as pneumonia, corresponds with a pulmonary infarct on the left and right side. The patient was admitted to [facility], where antibiotics were continued in the form of levofloxacin. He was anticoagulated appropriately. He has continued to spike fevers every day during this admission, as high as 38.8. Because of some nausea, the levofloxacin was changed to ceftriaxone and azithromycin on January 16. Given persistent fevers and a right pleural effusion , I am asked to assist in his management. The patient states he continues to have some tenderness and discomfort along his right ribs anteriorly, particularly when he takes a deep breath. He does not recall choking or having an aspiration event that he is aware of. The patient is able to tolerate thin liquids, and passed a swallow evaluation today. He feeds himself through his PEG tube and does not really have a significant p.o. intake, per se. PREVIOUS MEDICAL HISTORY: As outlined above. ALLERGIES: Penicillin causes severe rash but no throat closure, this was 20 years ago. MEDICATIONS: Presently include azithromycin 500 mg daily, ceftriaxone 1 g IV daily, Ativan, Eliquis, Dilaudid, nystatin, Tylenol, Zofran, oxycodone. SOCIAL HISTORY: The patient is originally from [place], but has lived in [place] for quite some time. He lives with his . They have a cat that is both an indoor and outdoor cat. He has not been scratched or bitten by the cat. He does not lick or kiss the cat. No other pet exposure. He has not had any exposure to birds, squirrels, or rabbits and does not really go outside. He does not like gardening. He states that his hobbies are baseball, watching baseball, and going to shows and concerts. He does not santos. He has not gone camping. No recent travel within or outside the [facility]. 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 He denies alcohol, marijuana, electronic cigarettes, or other illicit substances. No history of tuberculosis. He is a former smoker but quit many years ago. FAMILY HISTORY: Notable for a mother who of a congenital heart deformity and a father who of myelodysplastic syndrome. REVIEW OF SYSTEMS: Notable for occasional chills in the setting of fevers, and difficulty swallowing because of his oropharyngeal issues. Otherwise, no nausea , vomiting, headache, blurred vision, pain with mastication or biting down. Chest pain as outlined above in the anterior chest with inspiration. No abdominal pain, diarrhea, burning with urination or skin rash. No drenching night sweats. The patient has lost 40 pounds in the past few months with the cancer diagnosis. PHYSICAL EXAM: VITAL SIGNS: T-current is 38.3, T-max 38.8, heart rate of 103, blood pressure 122/73, 90% on 2.5 L. GENERAL: Middle-aged male, lying in bed, nontoxic-appearing. Sweating. HEENT: Atraumatic, normocephalic. Pupils equal , round, and reactive to light. Extraocular movements are intact. No conjunctival injection. No icterus or petechiae. No discharge from the nares or sinus process tenderness. Mucous membranes are moist with some tenacious mucus. Minimal thrush visible in the buccal mucosa, particularly on the right side. No obvious mucositis, per se. Poor dentition, but no obvious apical or periapical abscess. NECK: Some fullness on the left neck consistent with radiation. Otherwise, no thyromegaly or palpable thyroid nodules. CARDIOVASCULAR: S1, S2. No rubs, gallops or murmurs. LUNGS: No audible rub at the site of his discomfort on the right anterior chest. Diminished breath sounds right base. Otherwise, fairly clear. No rales, rhonchi, or wheeze. No egophony. BACK: No spinous process tenderness. ABDOMEN: Soft. No organomegaly or tenderness to palpation. EXTREMITIES: No clubbing, cyanosis, or edema. MUSCULOSKELETAL: No muscle belly tenderness or evidence of arthritis. SKIN: Warm and dry. No obvious rashes. Some seborrheic keratoses on his upper back and face. NEUROLOGIC: He is alert and oriented x3. He is moving all 4 extremities. No sensory or motor deficits. LABORATORY DATA: Blood cultures x2 on the , no growth. Blood cultures x2 on the , no growth. BUN and creatinine 22/0.6. Liver function tests within normal limits. White blood cell count of 2.3, hematocrit 28, platelet count of 102, 66% neutrophils, 22% bands. Urinalysis negative. RADIOGRAPHIC DATA: As outlined above. IMPRESSION: 66-year-old male with a history of head and neck cancer, now admitted with pulmonary emboli and consequential pulmonary infarctions. The patient remains febrile in spite of 7 days of antibiotic therapy. At this point in time, after reviewing all the radiographic data with Dr. Santos that revealed no convincing evidence of pneumonia, I feel that the patient's fevers are likely secondary to his pulmonary infarctions. I do not feel that he has an infection at this point in time. Notably, his urinalysis is bland, and he has nothing to intimate an abdominal infection,Cdiff colitis, or drug fever, per se. No exposure history to suggest a more esoteric/exotic infection, such as tuberculosis, tularemia, etc. PLAN: 1. Discontinue antibiotics. 2. I do feel that the patient can likely go home tomorrow and suspect his fevers will diminish over time. Again, I feel that his fevers are likely secondary to his pulmonary infarctions and not related to an infectious process. Thank you very much for consulting infectious diseases. Will continue to follow this patient with you. /[id number]/MODL MTDD
[2017-01-19] MEDS ORDERED: oxyCODONE IR 5 MG TAB TUBE PRN (00:15)
[2017-01-19] MEDS ORDERED: LORazepam 0.5 MG TAB TUBE PRN (00:15)
[2017-01-19] MEDS ORDERED: ONDANSETRON DISINTEGRATING 4 MG TAB TUBE PRN (00:15)
[2017-01-19] MEDS ORDERED: ACETAMINOPHEN 500 MG TAB TUBE PRN (00:15)
[2017-01-19] MEDS ORDERED: ACETAMINOPHEN 325 MG TAB TUBE PRN (00:15)
[2017-01-19] MEDS: NYSTATIN SUSP 500000 UNIT/5 ML UDCUP PO SCH ×2 (06:24→14:17)
[2017-01-19] MEDS ORDERED: APIXABAN 5 MG TAB TUBE SCH (09:00)
[2017-01-19] MEDS ORDERED: POLYETHYLENE GLYCOL 3350 17 GM PKT TUBE SCH (09:00)
[2017-01-19] MEDS ORDERED: PILOCARPINE HCL 5 MG TAB TUBE SCH (09:00)
--- NOTE | 2017-01-19 11:31 | GDS ---
[f rep st] DISCHARGE SUMMARY DISCHARGE DIAGNOSES: 1. Pulmonary embolism. 2. Hemoptysis. 3. Possible pneumonia, status post 7 days of antibiotics. 4. Fevers, likely secondary to pulmonary infarction in the setting of PE. 5. Laryngeal cancer, followed by Dr. Rizvi at the [facility]. 6. PEG tube, on tube feeds. CONSULTANTS: 1. Adrien Rizvi MD, Oncology. 2. Citlali España MD, Infectious Disease. HISTORY: For details, please see the history and physical dated January 15, 2017. In brief, the patien juan francisco is a 66-year-old male with a history of laryngeal cancer, who recently completed chemotherapy, and presented to the emergency department with hemoptysis. He was found to have right lower lobe pulmo nary emboli, was admitted to the hospital for further management. HOSPITAL COURSE: The patient is admitted to the med/surg unit. He was started on a heparin drip du e to his hemoptysis and had no further hemoptysis for 3 days. At that point, he was transitioned to Eliquis 10 mg b.i.d. Given his fevers, he was treated for a week with antibiotics. His fevers con tinued to persist for several days despite antibiotic treatment. Infectious Disease consult was obt ained and felt that his fevers were likely secondary to pulmonary infarction in the setting of PEs, and there was no real clear radiologic evidence of pneumonia. His antibiotics were discontinued aft er 7 days. His fevers should continue to dissipate as his PE resolves. He is continuing to require 3 L of oxygen at discharge and home oxygen was ordered. He will need close followup to wean off th is as able. DISPOSITION: Patient is discharged home in stable condition. FOLLOWUP: 1. Adrien Rizvi MD. The patient has an appointment on January 24. 2. Gonzalez Lawrence MD, primary care. DISCHARGE MEDICATIONS: Please see [employer] for completed updated outpatient medication list. He wi ll continue all outpatient medications as prescribed. New medications on discharge include: 1. Eliquis 10 mg per tube b.i.d. for 6 more days, then 5 mg per tube b.i.d. 2. Pilocarpine 5 mg per tube t.i.d., #30, no refills. /[id number]/MODL
[2017-01-19 11:49] VITALS: BP 119/65; PULSE 98; RESP 16; TEMP 98.7; O2SAT 94
--- NOTE | 2017-01-19 12:38 | PDIAF ---
- Diagnosis Diagnosis: PE Code Status: Full Code - Medication Management Discharge Medications: Medications to Continue on Transfer Acetaminophen [Tylenol ES 500 mg (*)] 500 mg PO DAILY PRN 11/01/16 [Last Taken 01/14/17 21:00] Lisinopril/Hctz 10/12.5 mg [Zestoretic/Prinzide 10/12.5MG (*)] 1 ea PO DAILY 06/10 [Last Taken 1 Week Ago] oxyCODONE HCL [Oxycodone HCl] 1 tab PO Q4HRS PRN 11/01/16 [Last Taken 01/14/17 21:00] Herbals/Supplements -Info Only 1 ea PO DAILY 01/15/17 [Last Taken Unknown] LORazepam [Ativan (*)] 0.5 mg PO DAILY PRN 01/15/17 [Last Taken Unknown] Apixaban [Eliquis] 10 mg TUBE BID #72 tab 01/19/17 [Last Taken Unknown] Pilocarpine HCl [Salagen 5mg (*)] 5 mg TUBE TID #30 tab 01/19/17 [Last Taken Unknown] Discharge Medications: Refer to the Discharge Home Medication list for PRN reason. - Orders Services needed: Home Care, Registered Nurse, Physical Therapy Home Care Face to Face: I certify that this patient was under my care and that I had the required [id number] encounter meeting the encounter requirements on the discharge day. My findings support the fact that the patient is homebound as defined in CMS Chapter 7 Medicare Benefits Manual 30.1.1, The condition of the patient is such that there exists a normal inability to leave home and consequently, leaving home would require a considerable and taxing effort. Oxygen: 3 LPM Diet Recommendation: no restrictions on diet Diet Texture: Thin Liquids, Non Oral Meds - Follow Up Care Current Providers and Referrals: Gonzalez Lawrence MD [Primary Care Provider] - As per Instructions Adrien Rizvi MD [Medical Doctor] -
[2017-01-25] MEDS ORDERED: APIXABAN 5 MG TAB TUBE SCH (09:00)
== END 2017-01-19 16:24 | disposition home health service (06) | DRG 176 ==
LOC: F1N 09:02
PROVIDERS: ADMIT Internal Medicine; ATTEND Internal Medicine
DX: I26.99 Other pulmonary embolism without acute cor pulmonale (principal); C32.9 Malignant neoplasm of larynx, unspecified; I10 Essential (primary) hypertension
CPT/HCPCS: 82947-QW; 85520-90; 92610-GN; 92611-GN; 96374; 97116-GP; 97161-GP; 97166-GO; 97530-GP; G8978-GP-CI; G8979-GP-CI; G8980-GP-CI; G8987-GO-CK; G8988-GO-CI; G8996-GN-CL; G8997-GN-CK; J0456; J0696; J1170; J1644; J2405; J2550; Q9967

== ENCOUNTER → 2017-06-23 | Outpatient (CLI) | payer OTHER | LOC: FIMAGING 12:36 | PROVIDERS: ATTEND Internal Medicine Hematology & Oncology | PROC: 0DPDXUZ Removal of Feeding Device from Lower Intestinal Tract, External Approach (ICD-10-PCS; principal; 2017-06-23) | DX: Z43.1 Encounter for attention to gastrostomy (principal); C01 Malignant neoplasm of base of tongue ==